=== PATIENT | male | born 1990 | race Caucasian/White ===

== ENCOUNTER → 2017-12-21 | Outpatient (CLI) | payer MEDICAID, SELFPAY | LOC: M OUTALCOH 13:48 | DX: Z03.89 Encounter for observation for other suspected diseases and conditions ruled out (principal) ==

== ENCOUNTER 2018-09-09 10:00 | Emergency (ER) | payer BC, OTHER ==
[~2018-09-09] VITALS: Ht 177.8 cm; Wt 84.1 kg
--- NOTE | 2018-09-09 11:09 | REP ---
Clinical: Trauma/injury. Technique: AP and lateral views of the right forearm. Findings: No acute fracture dislocation. Skeletal structures, joint spaces, and surrounding soft tissues are normal. No subcutaneous emphysema or radiodense foreign body. Impression: No acute fracture dislocation. Electronically Signed by Hermilo Edwards MD 09/09/2018 11:01 A
--- NOTE | 2018-09-09 11:21 | REP ---
Clinical: Trauma. Technique: AP, lateral, bilateral oblique views right hand . Findings: A nondisplaced fracture of the ulnar styloid is appreciated and requires clinical correlation. Lateral view cannot exclude small anterior corner fractures at the base of the fourth and fifth middle phalanges and clinical correlation is recommended. Differential diagnosis would include old injuries and chronic change. Impression: 1. Nondisplaced ulnar styloid fracture 2. Anterior intra-articular corner fractures at the base of the fourth and fifth middle phalanges involving the PIP joints cannot be excluded and requires correlation. Electronically Signed by Hermilo Edwards MD 09/09/2018 11:13 A
[2018-09-09 12:12] VITALS: BP 122/75
== END 2018-09-09 12:24 | disposition home or self-care (01) ==
LOC: M ED 10:00
DX: S52.614A Nondisplaced fracture of right ulna styloid process, initial encounter for closed fracture (principal); V00.131A Fall from skateboard, initial encounter; Y92.410 Unspecified street and highway as the place of occurrence of the external cause; F17.200 Nicotine dependence, unspecified, uncomplicated

== ENCOUNTER 2019-04-26 13:32 | Emergency (ER) | payer BC, OTHER ==
[~2019-04-26] VITALS: Ht 177.8 cm; Wt 82.0 kg
[2019-04-26 13:33] VITALS: BP 143/92
[2019-04-26] MEDS ORDERED: ADDE20TA (13:37)
[2019-04-26] MEDS ORDERED: PENICILLIN V POTASSIUM 500 MG TAB PO ONE (14:15)
[2019-04-26] MEDS ORDERED: IBUPROFEN 800 MG TAB PO ONE (14:15)
== END 2019-04-26 14:15 | disposition home or self-care (01) ==
LOC: M ED 13:32
DX: K04.7 Periapical abscess without sinus (principal)

== ENCOUNTER → 2020-03-23 | Outpatient (CLI) | payer MEDICAID ==
[~2020-03-23] MED LIST: ADDE20TA
[2020-03-23 14:23] LABS: BASO % 0.6 % (0.0-1.0); EOS # 0.2 10^3/uL (0.0-0.5); EOS % 2.2 % (0.0-3.0); HEMATOCRIT 47.1 % (42.0-52.0); HEMOGLOBIN 15.6 g/dl (13.5-17.5); LYMPH # 2.6 10^3/uL (1.5-5.0); LYMPH % 36.9 % (24.0-44.0); MEAN CORPUSCULAR HEMOGLOBIN 31.9 pg (27.0-33.0); MEAN CORPUSCULAR HGB CONC 33.1 g/dl (32.0-36.5); MEAN CORPUSCULAR VOLUME 96.3 fl (80.0-96.0); MONO # 0.9 10^3/uL (0.0-0.8); MONO % 12.2 % (0.0-5.0); NEUTROPHILS # 3.3 10^3/uL (1.5-8.5); NEUTROPHILS % 47.8 % (36.0-66.0); PLATELET COUNT, AUTOMATED 296 10^3/uL (150-450); RED BLOOD COUNT 4.89 10^6/uL (4.30-6.10)
[2020-03-23 14:53] LABS: ALBUMIN 4.6 GM/DL (3.2-5.2); ALT/SGPT 32 U/L (12-78); BILIRUBIN,TOTAL 0.4 MG/DL (0.2-1.0); BLOOD UREA NITROGEN 17 MG/DL (7-18); CALCIUM LEVEL 9.4 MG/DL (8.5-10.1); CARBON DIOXIDE LEVEL 29 MEQ/L (21-32); CHLORIDE LEVEL 101 MEQ/L (98-107); CHOLESTEROL LEVEL 195 MG/DL (<200); CHOLESTEROL RISK RATIO 3.482 (<5); CREATININE FOR GFR 0.89 MG/DL (0.70-1.30); GLOMERULAR FILTRATION RATE > 60.0 (>60); GLUCOSE, FASTING 99 MG/DL (70-100); HDL CHOLESTEROL 56 MG/DL (>40); LDL CHOLESTEROL 121 MG/DL (<100); NON-HDL-C 139 MG/DL; POTASSIUM SERUM 4.1 MEQ/L (3.5-5.1); SODIUM LEVEL 137 MEQ/L (136-145); TOTAL PROTEIN 7.8 GM/DL (6.4-8.2); TRIGLYCERIDES LEVEL 92 MG/DL (<150)
[2020-03-23 15:01] LABS: TOTAL 25(OH) VITAMIN D 24.6 NG/ML (30.0-100.0)
--- NOTE | 2020-03-24 23:39 | ECGEPIP ---
[facility] Test Date: 2020-03-23 Pat Name: ALEXANDR LUNA Department: Room: - Gender: Male Process Designer: DEBORA : 1990 Requested By: Nicole Chávez Order Number: [id number] Reading MD: Bunny Cordova Measurements Intervals [place] Rate: 77 P: 56 MD: 141 QRS: 68 QRSD: 102 T: 49 QT: 345 QTc: 392 Interpretive Statements SINUS RHYTHM WITH SINUS ARRHYTHMIA POSSIBLE LEFT VENTRICULAR HYPERTROPHY No prior tracing in the system Electronically Signed on 03-24-2020 23:38:55 EST by Bunny Cordova
== END ==
LOC: M LAB 12:28
PROVIDERS: ATTEND Nurse Practitioner Psychiatric/Mental Health
DX: F90.2 Attention-deficit hyperactivity disorder, combined type (principal); R94.31 Abnormal electrocardiogram [ECG] [EKG]

== ENCOUNTER 2021-06-03 03:51 | Emergency (ER) | payer OTHER ==
[~2021-06-03] VITALS: Ht 180.3 cm; Wt 76.6 kg
[2021-06-03] MEDS: ACETAMINOPHEN TAB 650MG DOSE (2X325MG) PO ONE (04:25)
[2021-06-03 06:31] VITALS: BP 107/58
== END 2021-06-03 07:04 | disposition home or self-care (01) ==
LOC: M ED 03:51
DX: S50.01XA Contusion of right elbow, initial encounter (principal); S80.02XA Contusion of left knee, initial encounter; S00.03XA Contusion of scalp, initial encounter; Y04.0XXA Assault by unarmed brawl or fight, initial encounter; Y92.89 Other specified places as the place of occurrence of the external cause; Y93.89 Activity, other specified; Y99.8 Other external cause status; F90.9 Attention-deficit hyperactivity disorder, unspecified type; F17.200 Nicotine dependence, unspecified, uncomplicated; Z79.899 Other long term (current) drug therapy

== ENCOUNTER → 2022-04-27 | Outpatient (CLI) | payer OTHER | LOC: M OUTALCOH 10:52 | PROVIDERS: ATTEND Psychiatry & Neurology Psychiatry | DX: F10.10 Alcohol abuse, uncomplicated (principal) ==

== ENCOUNTER → 2022-06-16 | Outpatient (RCR) | payer OTHER | LOC: M OUTALCOH 14:32 | PROVIDERS: ATTEND Psychiatry & Neurology Psychiatry | DX: F10.10 Alcohol abuse, uncomplicated (principal); Z72.0 Tobacco use ==

== ENCOUNTER 2022-07-14 15:00 | Outpatient (RCR) | payer OTHER | END 2022-07-16 | LOC: M OUTALCOH 15:00 | PROVIDERS: ATTEND Psychiatry & Neurology Psychiatry | DX: F10.10 Alcohol abuse, uncomplicated (principal); Z72.0 Tobacco use ==

== ENCOUNTER 2022-08-10 14:00 | Outpatient (RCR) | payer OTHER | END 2022-08-16 | LOC: M OUTALCOH 14:00 | PROVIDERS: ATTEND Psychiatry & Neurology Psychiatry | DX: Z72.0 Tobacco use (principal); F10.10 Alcohol abuse, uncomplicated ==

== ENCOUNTER → 2022-09-15 | Outpatient (RCR) | payer OTHER | LOC: M OUTALCOH 08-17 16:00 | PROVIDERS: ATTEND Psychiatry & Neurology Psychiatry | DX: F10.10 Alcohol abuse, uncomplicated (principal); Z72.0 Tobacco use ==

== ENCOUNTER 2022-09-20 21:50 | Emergency (ER) | payer OTHER ==
[~2022-09-20] VITALS: Ht 177.8 cm; Wt 83.4 kg
[2022-09-21] MEDS ORDERED: ACETAMINOPHEN 1000MG 100ML IV BAG IV ONE
[2022-09-21] MEDS ORDERED: AMPICILLIN SOD/SULBACTAM SOD 3 GM in D5W MINI-BAG PLUS 100 ML IV ONE ×2
[2022-09-21 01:31] LABS: BASO % 0.2 % (0.0-1.0); EOS # 0.1 10^3/uL (0.0-0.5); EOS % 0.7 % (0.0-3.0); HEMATOCRIT 43.5 % (42.0-52.0); HEMOGLOBIN 14.5 g/dl (13.5-17.5); LYMPH # 1.8 10^3/uL (1.5-5.0); MEAN CORPUSCULAR HEMOGLOBIN 30.6 pg (27.0-33.0); MEAN CORPUSCULAR HGB CONC 33.3 g/dl (32.0-36.5); MEAN CORPUSCULAR VOLUME 91.8 fl (80.0-96.0); MONO # 1.4 10^3/uL (0.0-0.8); MONO % 9.2 % (2.0-8.0); NEUTROPHILS # 11.9 10^3/uL (1.5-8.5); NEUTROPHILS % 77.4 % (36.0-66.0); PLATELET COUNT, AUTOMATED 268 10^3/uL (150-450); RED BLOOD COUNT 4.74 10^6/uL (4.30-6.10); WHITE BLOOD COUNT 15.3 10^3/uL (4.0-10.0)
[2022-09-21] MEDS ORDERED: ISOVUE-370 76% 100ML VIAL As Ordered ONE (01:37)
[2022-09-21] MEDS ORDERED: KETOROLAC 30 MG/ML 1ML VIAL IV ONE (03:20)
[2022-09-21] MEDS ORDERED: ONDANSETRON 4MG 2ML VIAL IV ONE (03:20)
[2022-09-21 04:28] VITALS: BP 132/68; TEMP 99; O2SAT 98
== END 2022-09-21 04:31 | disposition home or self-care (01) ==
LOC: M ED 21:50
DX: K04.7 Periapical abscess without sinus (principal); R22.0 Localized swelling, mass and lump, head
CPT/HCPCS: 70491; 80047; 83605; 85025; 87040; 96365; 96375; 99283; J0131; J0295; J1885; J2405; Q9967

== ENCOUNTER 2022-10-13 14:00 | Outpatient (RCR) | payer OTHER | END 2022-10-16 | LOC: M OUTALCOH 14:00 | PROVIDERS: ATTEND Psychiatry & Neurology Psychiatry | DX: F10.10 Alcohol abuse, uncomplicated (principal); Z72.0 Tobacco use ==

== ENCOUNTER → 2023-01-12 | Outpatient (CLI) | payer OTHER | LOC: M OUTALCOH 13:04 | PROVIDERS: ATTEND Psychiatry & Neurology Psychiatry | DX: F10.10 Alcohol abuse, uncomplicated (principal); F17.200 Nicotine dependence, unspecified, uncomplicated ==

== ENCOUNTER 2023-02-02 15:00 | Outpatient (RCR) | payer OTHER | END 2023-02-15 | LOC: M OUTALCOH 15:00 | PROVIDERS: ATTEND Psychiatry & Neurology Psychiatry | DX: F10.10 Alcohol abuse, uncomplicated (principal); F17.200 Nicotine dependence, unspecified, uncomplicated ==

== ENCOUNTER 2023-03-16 15:00 | Outpatient (RCR) | payer OTHER | END 2023-03-18 | LOC: M OUTALCOH 15:00 | PROVIDERS: ATTEND Psychiatry & Neurology Psychiatry | DX: F10.10 Alcohol abuse, uncomplicated (principal); F17.200 Nicotine dependence, unspecified, uncomplicated ==

== ENCOUNTER 2023-04-13 15:00 | Outpatient (RCR) | payer OTHER | END 2023-04-18 | LOC: M OUTALCOH 15:00 | PROVIDERS: ATTEND Psychiatry & Neurology Psychiatry | DX: F10.10 Alcohol abuse, uncomplicated (principal); F17.200 Nicotine dependence, unspecified, uncomplicated ==

== ENCOUNTER 2023-05-11 14:00 | Outpatient (RCR) | payer OTHER | END 2023-05-17 | LOC: M OUTALCOH 14:00 | PROVIDERS: ATTEND Psychiatry & Neurology Psychiatry | DX: F10.10 Alcohol abuse, uncomplicated (principal); F17.200 Nicotine dependence, unspecified, uncomplicated ==

== ENCOUNTER 2023-06-14 09:00 | Outpatient (RCR) | payer OTHER | END 2023-06-17 | LOC: M OUTALCOH 09:00 | PROVIDERS: ATTEND Psychiatry & Neurology Psychiatry | DX: F10.10 Alcohol abuse, uncomplicated (principal); F17.200 Nicotine dependence, unspecified, uncomplicated ==

== ENCOUNTER 2023-07-13 13:00 | Outpatient (RCR) | payer OTHER, SELFPAY | END 2023-07-17 | LOC: M OUTALCOH 13:00 | PROVIDERS: ATTEND Psychiatry & Neurology Psychiatry | DX: F10.20 Alcohol dependence, uncomplicated (principal); F17.200 Nicotine dependence, unspecified, uncomplicated ==

== ENCOUNTER → 2023-09-24 | Outpatient (CLI) | payer OTHER | LOC: M OUTALCOH 15:17 | PROVIDERS: ATTEND Psychiatry & Neurology Psychiatry | DX: F10.20 Alcohol dependence, uncomplicated (principal); F17.200 Nicotine dependence, unspecified, uncomplicated ==

== ENCOUNTER → 2023-09-25 | Outpatient (CLI) | payer OTHER | LOC: M RAD 16:49 | PROVIDERS: ATTEND Physician Assistant Medical | DX: M54.50 Low back pain, unspecified (principal); R53.81 Other malaise; R53.83 Other fatigue ==

== ENCOUNTER → 2023-10-17 | Outpatient (RCR) | payer OTHER | LOC: M OUTALCOH 10-04 13:02 | PROVIDERS: ATTEND Psychiatry & Neurology Psychiatry | DX: F12.10 Cannabis abuse, uncomplicated (principal); F17.200 Nicotine dependence, unspecified, uncomplicated ==

== ENCOUNTER 2023-11-14 14:59 | Outpatient (RCR) | payer OTHER | END 2023-11-17 | LOC: M OUTALCOH 14:59 | PROVIDERS: ATTEND Psychiatry & Neurology Psychiatry | DX: F12.10 Cannabis abuse, uncomplicated (principal); F17.200 Nicotine dependence, unspecified, uncomplicated | CPT/HCPCS: G0397 ×2 ==

== ENCOUNTER 2023-12-11 10:00 | Outpatient (RCR) | payer OTHER | END 2023-12-17 | LOC: M OUTALCOH 10:00 | PROVIDERS: ATTEND Psychiatry & Neurology Psychiatry | DX: F12.10 Cannabis abuse, uncomplicated (principal); F17.200 Nicotine dependence, unspecified, uncomplicated ==

== ENCOUNTER → 2024-02-05 | Outpatient (CLI) | payer OTHER | LOC: M OUTALCOH 08:03 | PROVIDERS: ATTEND Psychiatry & Neurology Psychiatry | DX: F12.10 Cannabis abuse, uncomplicated (principal); F17.200 Nicotine dependence, unspecified, uncomplicated ==